=== PATIENT | female | born 1935 | race Two or more races ===

== ENCOUNTER 2016-07-30 20:51 | Emergency (ER) | payer SELFPAY ==
[~2016-07-30] VITALS: Ht 162.6 cm; Wt 56.7 kg
[~2016-07-30 20:51] MED LIST: AMLO10TA4 PO; AMLO5TAB2 PO; ASPI-482 PO; DOCU-27 PO; FURO20TA3 PO; FURO40TA4 PO; GLIP5POW; GLIP5TAB10 PO; LEVO50CA; LEVO50TA5 PO; LISI-338; LISI-338 PO; LORA10TA3 PO; METF1000; METF10002 PO; METO50TA2; METO50TA2 PO; NITR0.4T6 SL; TRAM50TA
[2016-07-30 21:17] LABS: BASO # 0.1 x10^3/uL (0.0-0.2); BASO % 1 % (0-3); EOS % 3 % (0-3); HEMATOCRIT 26.8 % (36.0-47.0); HEMOGLOBIN 8.6 g/dL (12.0-15.5); LYMPH # 0.8 x10^3/uL (1.0-4.8); LYMPH % 13 % (24-48); MEAN CORPUSCULAR HEMOGLOBIN 27 pg (25-35); MEAN CORPUSCULAR HGB CONC 32 g/dL (31-37); MEAN CORPUSCULAR VOLUME 86 fL (79-100); MONO % 8 % (0-9); NEUT % 76 % (31-73); PLATELET COUNT 270 x10^3/uL (140-400); RED BLOOD COUNT 3.12 x10^6/uL (3.50-5.40); RED CELL DISTRIBUTION WIDTH 14.4 % (11.5-14.5); WHITE BLOOD COUNT 6.5 x10^3/uL (4.0-11.0)
[2016-07-30 21:27] LABS: ANION GAP 12 (6-14); BLOOD UREA NITROGEN 76 mg/dL (7-20); CALCIUM 8.2 mg/dL (8.5-10.1); CARBON DIOXIDE 21 mmol/L (21-32); CHLORIDE 108 mmol/L (98-107); CREATININE 2.7 mg/dL (0.6-1.0); GFR 16.9; GLUCOSE 205 mg/dL (70-99); POTASSIUM 5.4 mmol/L (3.5-5.1); SODIUM 141 mmol/L (136-145)
[2016-07-30 21:33] LABS: ALBUMIN 2.6 g/dL (3.4-5.0); ALK PHOS 118 U/L (46-116); ALT (SGPT) 30 U/L (14-59); AST (SGOT) 47 U/L (15-37); DIRECT BILIRUBIN < 0.1 mg/dL (0.0-0.2); TOTAL BILIRUBIN 0.2 mg/dL (0.2-1.0); TOTAL PROTEIN 7.4 g/dL (6.4-8.2)
[2016-07-30 21:52] LABS: BILIRUBIN,URINE NEGATIVE (NEG); GLUCOSE,URINE 250 mg/dL (NEG); NITRITE,URINE NEGATIVE (NEG); PROTEIN,URINE >=300 mg/dL (NEG-TRACE); UROBILINOGEN,URINE 0.2 mg/dL (0.2 mg/dL)
[2016-07-30] MEDS ORDERED: ONDANSETRON PF 4 MG/2 ML VIAL. IV PRN (22:00)
[2016-07-30] MEDS ORDERED: MORPHINE SULFATE 2 MG/ML DISP.SYRIN. IV PRN (22:00)
[2016-07-30 22:02] LABS: BACTERIA,URINE MANY /HPF (0-FEW); RBC,URINE OCC /HPF (0-2)
[2016-07-30 22:03] LABS: SQUAMOUS EPITHELIAL CELL,UR FEW /LPF
--- NOTE | 2016-07-30 22:33 | PHYS DOC ---
Past Medical History Past Medical History: Diabetes-Type II, High Cholesterol, Heart Disease, Hypertension, Hypothyroid Additional Past Medical Histor: PACE MAKER Past Surgical History: Cholecystectomy, Pacemaker Additional Past Surgical Histo: PACEMAKER PLACEMENT Alcohol Use: None Drug Use: None Adult General Chief Complaint Chief Complaint: firing of the pacemaker HPI HPI 80-year-old female presenting to the emergency department today after feeling a sensation of pacemaker firing clinically over the past 24 hours. She had the pacemaker placed approximately 3 or [address] Valadez. He denies syncope chest pain. She does endorse palpitations. Location chest. Duration intermittent. Nonradiating. No alleviating factors. No specific timing present. She describes a shocking sensation sometimes that radiates down her right side intermittently. Review of systems is negative for nausea vomiting abdominal pain fevers chills. She denies chest pain or shortness of breath. All other review of systems is negative unless otherwise noted in history of present illness. Review of Systems Review of Systems SEE ABOVE Current Medications Current Medications Current Medications Medications (Trade) Dose Ordered Sig/Halie Start Time Stop Time Status Last Admin Dose Admin Morphine Sulfate 2 mg PRN Q2HR PRN 07/30/16 22:00 07/31/16 21:59 07/30/16 22:05 2 MG Ondansetron HCl (Zofran) 4 mg PRN Q8HRS PRN 07/30/16 22:00 07/31/16 21:59 07/30/16 22:05 4 MG Allergies Allergies Allergies Coded Allergies Type Severity Reaction Last Updated Verified Fish Containing Products Allergy Intermediate 12/18/15 Yes erythromycin base Allergy Intermediate 12/18/15 Yes Physical Exam Physical Exam Constitutional: Well developed, well nourished, no acute distress, non-toxic appearance. Pleasant elderly female who is not in distress. Speaking Macedonian. Her son is here translating currently. HENT: Normocephalic, atraumatic, bilateral external ears normal, oropharynx moist, no oral exudates, nose normal. [] Eyes: PERRLA, EOMI, conjunctiva normal, no discharge. Neck: Normal range of motion, no tenderness, supple, no stridor. Cardiovascular: regular rate and regular rhythm, no murmur [] Lungs & Thorax: Bilateral breath sounds clear to auscultation Abdomen: Bowel sounds normal, soft, no tenderness, no masses, no pulsatile masses. Skin: Warm, dry, no erythema, no rash. Back: No tenderness, no CVA tenderness. [] Extremities: No tenderness, no cyanosis, no clubbing, ROM intact, no edema. Neurologic: Alert and oriented X 3, normal motor function, normal sensory function, no focal deficits noted. Psychologic: Affect normal, judgement normal, mood normal. [] Current Patient Data Vital Signs Vital Signs Date Time Temp Pulse Resp B/P Pulse Ox O2 Delivery O2 Flow Rate FiO2 07/30/16 22:05 22 98 Room Air 07/30/16 20:58 98.2 63 165/76 98.2 Lab Values Laboratory Tests Test 07/30/16 21:07 07/30/16 21:40 White Blood Count 6.5x10^3/uL (4.0-11.0) Red Blood Count 3.12x10^6/uL (3.50-5.40) L Hemoglobin 8.6g/dL (12.0-15.5) L Hematocrit 26.8% (36.0-47.0) L Mean Corpuscular Volume 86fL (79-100) Mean Corpuscular Hemoglobin 27pg (25-35) Mean Corpuscular Hemoglobin Concent 32g/dL (31-37) Red Cell Distribution Width 14.4% (11.5-14.5) Platelet Count 270x10^3/uL (140-400) Neutrophils (%) (Auto) 76% (31-73) H Lymphocytes (%) (Auto) 13% (24-48) L Monocytes (%) (Auto) 8% (0-9) Eosinophils (%) (Auto) 3% (0-3) Basophils (%) (Auto) 1% (0-3) Neutrophils # (Auto) 4.9x10^3uL (1.8-7.7) Lymphocytes # (Auto) 0.8x10^3/uL (1.0-4.8) L Monocytes # (Auto) 0.5x10^3/uL (0.0-1.1) Eosinophils # (Auto) 0.2x10^3/uL (0.0-0.7) Basophils # (Auto) 0.1x10^3/uL (0.0-0.2) Sodium Level 141mmol/L (136-145) Potassium Level 5.4mmol/L (3.5-5.1) H Chloride Level 108mmol/L (98-107) H Carbon Dioxide Level 21mmol/L (21-32) Anion Gap 12 (6-14) Blood Urea Nitrogen 76mg/dL (7-20) H Creatinine 2.7mg/dL (0.6-1.0) H Estimated GFR (Cockcroft-Gault) 16.9 Glucose Level 205mg/dL (70-99) H Calcium Level 8.2mg/dL (8.5-10.1) L Total Bilirubin 0.2mg/dL (0.2-1.0) Direct Bilirubin < 0.1mg/dL (0.0-0.2) Aspartate Amino Transferase (AST) 47U/L (15-37) H Alanine Aminotransferase (ALT) 30U/L (14-59) Alkaline Phosphatase 118U/L (46-116) H Troponin I Quantitative 0.034ng/mL (0.000-0.055) FP-Fhw-H-Type Natriuretic Peptide 92420so/mL (0-449) H Total Protein 7.4g/dL (6.4-8.2) Albumin 2.6g/dL (3.4-5.0) L Lipase 528U/L (73-393) H Urine Collection Type Void Urine Color Yellow Urine Clarity Clear Urine pH 6.0 Urine Specific [place] 1.015 Urine Protein >=300mg/dL (NEG-TRACE) Urine Glucose (UA) 250mg/dL (NEG) Urine Ketones (Stick) Negativemg/dL (NEG) Urine Blood Small (NEG) Urine Nitrite Negative (NEG) Urine Bilirubin Negative (NEG) Urine Urobilinogen Dipstick 0.2mg/dL (0.2 mg/dL) Urine Leukocyte Esterase Negative (NEG) Urine RBC Occ/HPF (0-2) Urine WBC 5-10/HPF (0-4) Urine Squamous Epithelial Cells Few/LPF Urine Bacteria Many/HPF (0-FEW) Laboratory Tests 07/30/16 21:07 Laboratory Tests 07/30/16 21:07 EKG EKG EKG shows a paced rhythm. [] Radiology/Procedures Radiology/Procedures Chest x-ray reviewed by myself shows no obvious infiltrate or pneumothorax present. No obvious acute cardiopulmonary process present.[] Course & Med Decision Making Course & Med Decision Making Pertinent Labs and Imaging studies reviewed. (See chart for details) [] 80-year-old female presenting to the emergency department today with intermittent palpitations and firing of her pacemaker at home over the past 24 hours. Vital signs showed mild hypertension. Pertinent physical exam findings normal pulmonary and cardiac exam. Patient is well-appearing without any distress. EKG shows a paced rhythm. Chest x-ray shows no acute pathology. CBC shows a chronic anemia. Urinalysis shows mild bacteriuria. The patient does have mild spasms of the father so we will give her antibiotics for this. Chemistry panel otherwise shows chronic kidney disease with a creatinine and BUN similar to previous over the past few months. Otherwise proBNP chronically elevated. Troponin within the reference range of normal. Lipase mildly elevated. The patient does not have nausea vomiting or any clinical evidence of pancreatitis. The patient's pacemaker was interrogated and without any evidence of ectopic beats. I discussed the case with the patient's blankmaker Dr. Valadez. He said he could see her in clinic in the next week. I discussed the case with family at length. I offered admission to the hospital however feel the patient is safe to go home. Collectively the family and I decided that the patient could be discharged home to follow up with Dr. Valadez and her PCP over the next Tuesday or Tuesday for further evaluation workup and care. Dragon Disclaimer Dragon Disclaimer This electronic medical record was generated, in whole or in part, using a voice recognition dictation system. Departure Departure Impression: Primary Impression: Pacemaker Additional Impression: Palpitations Disposition: HOME, SELF-CARE Condition: STABLE Referrals: EMILIANO VALADEZ MD (PCP) Patient Instructions: Pacemaker Follow-up Additional Instructions: Thank you for allowing us to participate in your care today. Followup with your primary care physician in 3 days if your symptoms do not improve. If you do not have a primary care provider you can ask for a list of our primary care providers. Return to the emergency department you have any new or concerning findings. This should be evaluated by the primary care physician and any necessary consulting services for continued management within a few days after discharge. Return to emergency room if you have any new or concerning symptoms including but not limited to fever, chills, nausea, vomiting, intractable pain, any new rashes, chest pain, shortness of air, uncontrolled bleeding, difficulty breathing, and/or vision loss. You may have been prescribed medication that can change in your level of thinking and ability to operate machinery. These medications include hydrocodone and Ativan. Also, Benadryl has been known to do this as well. Be sure to check with your pharmacist and ask if the medications you've prescribed can affect your level of consciousness. I recommend not operating heavy machinery or driving while on medication such as these. Scripts Nitrofurantoin Monohyd/M-Cryst (Macrobid 100 Mg Capsule)100 Mg Capsule1 Cap PO BID #10 CAP Prov:JOSIE YOUSSEF MD 07/30/16 Hydrocodone Bit/Acetaminophen (Hydrocodone-Apap 5-325 )1 Each Tablet1 Tab PO PRN Q6HRS PRN PAIN #15 TAB Be careful as this medication may cause you to be drowsy or tired. Do not drive on this medication. Prov:JOSIE YOUSSEF MD 07/30/16 Problem Qualifiers JOSIE YOUSSEF MD Jul 30, 2016 22:33
[2016-07-30] MEDS ORDERED: HYDR-2666 PO (23:10)
[2016-07-30] MEDS ORDERED: NITR100C62 PO (23:10)
[2016-07-30 23:30] VITALS: BP 157/77
--- NOTE | 2016-07-31 08:29 | RAD ---
Indication: Chest pain and short of breath. Hypertension. Technique: Upright portable chest radiograph was obtained and compared to a study from May 19, 2016. Findings: There is left basilar opacity. Right lung is relatively clear. The heart is not enlarged. There is minimal atheromatous disease in the thoracic aorta. Pacemaker is noted. Leads overlie the patient. Impression: Left basilar atelectasis and/or infiltrate.
--- NOTE | 2016-07-31 09:09 | EKG ---
[facility] [address] [place] [address] Test Date: 2016-07-30 Test Time: 20:58:25 Pat Name: CARRIE EDWARDS Department: Room: Gender: F [place] [employer]: : 1935 Requested By: JOSIE YOUSSEF Order Number: [id number] Reading MD: Radha Soriano Measurements Intervals [place] Rate: 62 P: OR: QRS: -121 QRSD: 170 T: 122 QT: 488 QTc: 498 Interpretive Statements PROBABLE ATRIAL FIBRILLATION. ELECTRONICPACEMAKER V PACED AT 60 BPM. ABNORMAL ECG Electronically Signed On 07-31-2016 20:30:52 CDT by Radha Soriano
== END 2016-07-30 23:49 | disposition home or self-care (01) ==
LOC: ER 20:51
DX: T82.198A Other mechanical complication of other cardiac electronic device, initial encounter (principal); E11.9 Type 2 diabetes mellitus without complications; E03.9 Hypothyroidism, unspecified; I11.9 Hypertensive heart disease without heart failure; I51.9 Heart disease, unspecified; E78.00 Pure hypercholesterolemia, unspecified; Z88.1 Allergy status to other antibiotic agents; Z91.013 Allergy to seafood; Z90.49 Acquired absence of other specified parts of digestive tract; Y82.8 Other medical devices associated with adverse incidents; Y92.89 Other specified places as the place of occurrence of the external cause
CPT/HCPCS: 36415; 71010; 80048; 80076; 81001; 83605; 83690; 83880; 84484; 85027; 87086; 93005; 96374; 96375; 99285; J2270; J2405